=== PATIENT | female | born 1965 | race Two or more races ===

== ENCOUNTER → 2017-08-21 16:02 | Outpatient (CLI) | payer OTHER | END | disposition home or self-care (01) | LOC: LAB 16:02 | DX: J11.1 Influenza due to unidentified influenza virus with other respiratory manifestations (principal); R50.9 Fever, unspecified ==

== ENCOUNTER → 2017-08-21 | Outpatient (CLI) | payer OTHER ==
[~2017-08-21] VITALS: Ht 152.4 cm; Wt 64.4 kg
[~2017-08-21] MED LIST: CATAFLAM50 MG PO; CLEOCIN; COZAAR50 MG; COZAAR50 MG PO; DIOVAN HCT 160-1 TAB PO; FLEXERIL10 MG PO; HYDROCODONE-APA1 CAP PO; MOTRIN800 MG PO; NEURONTIN300 MG; NEURONTIN300 MG PO; RELAFEN500 MG PO; TENORMIN25 MG PO; VOLTAREM 50 MG PO; XANAFLEX PO
== END | disposition home or self-care (01) ==
LOC: PPHC 15:08
DX: R05 Cough (principal); R50.9 Fever, unspecified; J06.9 Acute upper respiratory infection, unspecified

== ENCOUNTER → 2017-10-02 | Outpatient (CLI) | payer OTHER | END | disposition home or self-care (01) | LOC: PPHC 16:00 | DX: M54.2 Cervicalgia (principal) ==

== ENCOUNTER → 2017-10-02 | Outpatient (CLI) | payer OTHER | END | disposition home or self-care (01) | LOC: RAD 16:33 | DX: M54.2 Cervicalgia (principal); M54.5 Low back pain ==

== ENCOUNTER → 2017-10-17 | Outpatient (CLI) | payer OTHER | END | disposition home or self-care (01) | LOC: PPHC 14:25 | DX: M54.5 Low back pain (principal); M54.2 Cervicalgia ==

== ENCOUNTER → 2017-11-13 | Outpatient (CLI) | payer OTHER | END | disposition home or self-care (01) | LOC: PPHC 14:37 | DX: M54.2 Cervicalgia (principal) ==

== ENCOUNTER → 2018-02-21 08:27 | Outpatient (CLI) | payer OTHER | END | disposition home or self-care (01) | LOC: LAB 08:27 | DX: Z83.3 Family history of diabetes mellitus (principal); E78.2 Mixed hyperlipidemia; E78.00 Pure hypercholesterolemia, unspecified; R74.0 Nonspecific elevation of levels of transaminase and lactic acid dehydrogenase [LDH]; D50.8 Other iron deficiency anemias; N39.0 Urinary tract infection, site not specified; Z83.49 Family history of other endocrine, nutritional and metabolic diseases; E55.9 Vitamin D deficiency, unspecified; E16.2 Hypoglycemia, unspecified ==

== ENCOUNTER 2018-03-04 08:20 | Outpatient (CLI) | payer OTHER ==
[2018-03-31] MEDS ORDERED: TOPROL XL25 M1 (10:44)
== END 2018-03-04 08:29 | disposition home or self-care (01) ==
LOC: NUCLEAR 08:20
DX: R00.2 Palpitations (principal)

== ENCOUNTER 2018-05-14 18:38 | Emergency (ER) | payer OTHER ==
[~2018-05-14] VITALS: Ht 154.9 cm; Wt 69.4 kg
[~2018-05-14 18:38] MED LIST changes: +TOPROL XL25 M1
== END 2018-05-14 20:04 | disposition home or self-care (01) ==
LOC: ER 18:38
DX: S39.012A Strain of muscle, fascia and tendon of lower back, initial encounter (principal); M62.830 Muscle spasm of back; X50.3XXA Overexertion from repetitive movements, initial encounter; Y93.89 Activity, other specified; Y92.69 Other specified industrial and construction area as the place of occurrence of the external cause; Y99.8 Other external cause status

== ENCOUNTER 2018-07-13 07:28 | Outpatient (CLI) | payer OTHER | END 2018-07-13 12:21 | disposition home or self-care (01) | LOC: LAB 07:28 | DX: I10 Essential (primary) hypertension (principal); M25.50 Pain in unspecified joint; M54.89 Other dorsalgia ==

== ENCOUNTER 2018-11-11 16:30 | Outpatient (CLI) | payer OTHER | END 2018-11-11 16:37 | disposition home or self-care (01) | LOC: LAB 16:30 | DX: J11.1 Influenza due to unidentified influenza virus with other respiratory manifestations (principal); A49.3 Mycoplasma infection, unspecified site ==

== ENCOUNTER 2018-11-22 11:58 | Outpatient (CLI) | payer OTHER | END 2018-11-22 12:04 | disposition home or self-care (01) | LOC: SONOGRAMA 11:58 | DX: M25.561 Pain in right knee (principal); S83.241A Other tear of medial meniscus, current injury, right knee, initial encounter ==

== ENCOUNTER 2019-02-07 07:41 | Emergency (ER) | payer OTHER ==
[~2019-02-07] VITALS: Ht 154.9 cm; Wt 69.9 kg
== END 2019-02-07 11:18 | disposition home or self-care (01) ==
LOC: ER 07:41
DX: M54.16 Radiculopathy, lumbar region (principal); M54.5 Low back pain

== ENCOUNTER 2019-03-21 14:24 | Outpatient (CLI) | payer OTHER | END 2019-03-21 14:29 | disposition home or self-care (01) | LOC: RAD 14:24 | DX: R76.11 Nonspecific reaction to tuberculin skin test without active tuberculosis (principal) ==

== ENCOUNTER 2019-07-21 13:35 | Outpatient (CLI) | payer OTHER | END 2019-07-21 14:09 | disposition home or self-care (01) | LOC: RAD 13:35 → LAB 13:35 → RAD 14:09 | DX: R05 Cough (principal) ==

== ENCOUNTER 2019-08-12 10:57 | Outpatient (CLI) | payer OTHER | END 2019-08-12 15:00 | disposition home or self-care (01) | LOC: LAB 10:57 | DX: R05 Cough (principal); J11.1 Influenza due to unidentified influenza virus with other respiratory manifestations; J06.9 Acute upper respiratory infection, unspecified ==

== ENCOUNTER 2019-08-29 06:33 | Outpatient (CLI) | payer OTHER | END 2019-08-29 06:40 | disposition home or self-care (01) | LOC: LAB 06:33 | DX: E03.8 Other specified hypothyroidism (principal); E78.00 Pure hypercholesterolemia, unspecified; N39.0 Urinary tract infection, site not specified; Z11.4 Encounter for screening for human immunodeficiency virus [HIV]; Z12.11 Encounter for screening for malignant neoplasm of colon; E55.9 Vitamin D deficiency, unspecified; Z21 Asymptomatic human immunodeficiency virus [HIV] infection status; R79.89 Other specified abnormal findings of blood chemistry ==

== ENCOUNTER 2019-09-03 08:06 | Outpatient (CLI) | payer OTHER | END 2019-09-03 08:11 | disposition home or self-care (01) | LOC: MAMO-SONO 08:06 | DX: Z12.31 Encounter for screening mammogram for malignant neoplasm of breast (principal); Z87.898 Personal history of other specified conditions; N94.0 Mittelschmerz; R10.2 Pelvic and perineal pain; N94.89 Other specified conditions associated with female genital organs and menstrual cycle; N63.10 Unspecified lump in the right breast, unspecified quadrant; N63.20 Unspecified lump in the left breast, unspecified quadrant; N64.59 Other signs and symptoms in breast; N64.89 Other specified disorders of breast ==

== ENCOUNTER 2019-10-13 14:39 | Outpatient (CLI) | payer OTHER | END 2019-10-13 14:44 | disposition home or self-care (01) | LOC: LAB 14:39 | DX: J11.1 Influenza due to unidentified influenza virus with other respiratory manifestations (principal) ==

== ENCOUNTER 2019-12-26 15:50 | Outpatient (CLI) | payer OTHER | END 2019-12-26 16:05 | disposition home or self-care (01) | LOC: RAD 15:50 | PROVIDERS: ATTEND General Practice | DX: M25.571 Pain in right ankle and joints of right foot (principal); S93.401A Sprain of unspecified ligament of right ankle, initial encounter ==

== ENCOUNTER 2020-03-26 06:27 | Outpatient (CLI) | payer OTHER | END 2020-03-26 06:50 | disposition home or self-care (01) | LOC: LAB 06:27 | PROVIDERS: ATTEND General Practice | DX: N39.0 Urinary tract infection, site not specified (principal); Z00.00 Encounter for general adult medical examination without abnormal findings; I10 Essential (primary) hypertension; E55.9 Vitamin D deficiency, unspecified; R42 Dizziness and giddiness; E78.49 Other hyperlipidemia ==

== ENCOUNTER 2020-09-07 06:54 | Outpatient (CLI) | payer OTHER | END 2020-09-07 06:58 | disposition home or self-care (01) | LOC: LAB 06:54 | PROVIDERS: ATTEND Internal Medicine Cardiovascular Disease | DX: I10 Essential (primary) hypertension (principal) ==

== ENCOUNTER 2021-01-21 15:05 | Outpatient (CLI) | payer OTHER | END 2021-01-21 15:12 | disposition home or self-care (01) | LOC: RAD 15:05 | PROVIDERS: ATTEND General Practice | DX: R07.89 Other chest pain (principal) ==

== ENCOUNTER → 2021-03-01 06:41 | Outpatient (CLI) | payer OTHER ==
[~2021-03-01 06:41] MED LIST changes: +KETO10TA2 PO; +NORFLEX100MG PO; +VOLTAREN100 GM TOP
== END | disposition home or self-care (01) ==
LOC: LAB 06:41
PROVIDERS: ATTEND Emergency Medicine Pediatric Emergency Medicine
DX: Z03.818 Encounter for observation for suspected exposure to other biological agents ruled out (principal)

== ENCOUNTER 2021-03-08 06:36 | Outpatient (CLI) | payer OTHER ==
[~2021-03-08 06:36] MED LIST changes: -KETO10TA2 PO; -NORFLEX100MG PO; -VOLTAREN100 GM TOP
== END 2021-03-08 06:40 | disposition home or self-care (01) ==
LOC: LAB 06:36
PROVIDERS: ATTEND Emergency Medicine Pediatric Emergency Medicine
DX: Z03.818 Encounter for observation for suspected exposure to other biological agents ruled out (principal)

== ENCOUNTER 2021-03-15 07:56 | Outpatient (CLI) | payer OTHER | END 2021-03-15 15:32 | disposition home or self-care (01) | LOC: LAB 07:56 | PROVIDERS: ATTEND Emergency Medicine Pediatric Emergency Medicine | DX: Z03.818 Encounter for observation for suspected exposure to other biological agents ruled out (principal) ==

== ENCOUNTER 2021-03-22 08:14 | Outpatient (CLI) | payer OTHER | END 2021-03-22 08:19 | disposition home or self-care (01) | LOC: LAB 08:14 | PROVIDERS: ATTEND Emergency Medicine Pediatric Emergency Medicine | DX: Z03.818 Encounter for observation for suspected exposure to other biological agents ruled out (principal) ==

== ENCOUNTER 2021-03-27 06:00 | Emergency (ER) | payer OTHER ==
[~2021-03-27] VITALS: Ht 154.9 cm; Wt 63.5 kg
[2021-03-27] MEDS ORDERED: VOLTAREN100 GM TOP (06:13)
[2021-03-27] MEDS ORDERED: KETO10TA2 PO (07:31)
[2021-03-27] MEDS ORDERED: NORFLEX100MG PO (07:31)
== END 2021-03-27 08:22 | disposition home or self-care (01) ==
LOC: ER 06:00
DX: M54.2 Cervicalgia (principal); M25.511 Pain in right shoulder

== ENCOUNTER 2021-03-29 07:47 | Outpatient (CLI) | payer OTHER ==
[~2021-03-29 07:47] MED LIST changes: +KETO10TA2 PO; +NORFLEX100MG PO; +VOLTAREN100 GM TOP
== END 2021-03-29 07:50 | disposition home or self-care (01) ==
LOC: SONOGRAMA 07:47
PROVIDERS: ATTEND Internal Medicine Gastroenterology
DX: R10.84 Generalized abdominal pain (principal)

== ENCOUNTER 2024-02-08 07:22 | Outpatient (CLI) | payer OTHER ==
[2024-02-08 08:30] LABS: ob NEGATIVE (NEGATIVE)
== END 2024-02-08 13:18 | disposition home or self-care (01) ==
LOC: LAB 07:22
DX: E03.9 Hypothyroidism, unspecified (principal); Z00.00 Encounter for general adult medical examination without abnormal findings; I10 Essential (primary) hypertension; E78.00 Pure hypercholesterolemia, unspecified; N39.0 Urinary tract infection, site not specified; Z11.4 Encounter for screening for human immunodeficiency virus [HIV]; Z12.11 Encounter for screening for malignant neoplasm of colon; E55.9 Vitamin D deficiency, unspecified; Z21 Asymptomatic human immunodeficiency virus [HIV] infection status; R79.9 Abnormal finding of blood chemistry, unspecified; R79.89 Other specified abnormal findings of blood chemistry

== ENCOUNTER 2024-02-15 12:49 | Outpatient (CLI) | payer OTHER | END 2024-02-15 12:51 | disposition home or self-care (01) | LOC: NUCLEAR 12:49 | PROVIDERS: ATTEND Obstetrics & Gynecology | DX: Z13.820 Encounter for screening for osteoporosis (principal); M81.0 Age-related osteoporosis without current pathological fracture; N95.1 Menopausal and female climacteric states ==